=== PATIENT | male | born 1995 | race Caucasian/White ===

== ENCOUNTER 2020-01-20 18:53 | Emergency (ER) | payer SELFPAY ==
[~2020-01-20] VITALS: Ht 167.6 cm; Wt 75.9 kg
[2020-01-20 19:02] VITALS: BP 119/76; TEMP 98.4
[2020-01-20] MEDS ORDERED: TRIAMCINOLONE A15 GM TP (19:20)
[2020-01-20 19:35] VITALS: PULSE 57
== END 2020-01-20 19:35 | disposition home or self-care (01) ==
LOC: COL.ER 18:53
DX: L23.7 Allergic contact dermatitis due to plants, except food (principal); Z98.890 Other specified postprocedural states